=== PATIENT | male | born 1955 | race Caucasian/White ===

== ENCOUNTER → 2018-09-22 10:46 | Outpatient (CLI) | payer BC | END | disposition home or self-care (01) | LOC: D.LAB 10:46 | PROVIDERS: ATTEND Pain Medicine Interventional Pain Medicine | DX: M46.1 Sacroiliitis, not elsewhere classified (principal) ==

== ENCOUNTER → 2018-12-21 08:40 | Outpatient (CLI) | payer BC | END | disposition home or self-care (01) | LOC: D.RAD 08:40 | PROVIDERS: ATTEND Pain Medicine Interventional Pain Medicine | DX: M54.6 Pain in thoracic spine (principal) ==